=== PATIENT | male | born 1970 | race African-American/Black ===

== ENCOUNTER 2016-12-09 09:44 | Day surgery (SDC) | payer BC ==
[~2016-12-09] VITALS: Ht 182.9 cm; Wt 123.4 kg
[2016-12-09] MEDS ORDERED: LISINOPRIL (11:01)
[2016-12-09] MEDS ORDERED: ATENOLOL (11:01)
[2016-12-09] MEDS ORDERED: PROPOFOL 80 ML ONE (11:31)
--- NOTE | 2016-12-09 12:10 | OPPN ---
Date/Time of Note Date/Time of Note DATE: 12/09/16 TIME: 12:09 Operative Report Preoperative Diagnosis Abdominal pain Rectal bleeding Postoperative Diagnosis Gastritis Internal hemorrhoids Operation/Procedure Performed Esophagogastroduodenoscopy and biopsy Colonoscopy Surgeon see signature line housekeeping assistant None Anesthesia: MAC Estimated blood loss: none Transfusion Required none Specimen Gastric mucosal biopsy Grafts/Implants none Complications none JUS JEREZ MD Dec 09, 2016 12:10
[2016-12-09 12:45] VITALS: BP 142/78; RESP 14
--- NOTE | 2016-12-09 13:37 | GILP ---
DATE OF PROCEDURE: 12/09/2016 PROCEDURES PERFORMED: 1. Esophagogastroduodenoscopy and biopsy. 2. Colonoscopy. SURGEON: Karishma Montemayor MD PREOPERATIVE DIAGNOSES: 1. Abdominal pain. 2. Rectal bleeding. POSTOPERATIVE DIAGNOSES: 1. Gastritis. 2. Gastric mucosal biopsies were taken for Helicobacter pylori test. 3. Colonoscopy all the way to the cecum. 4. Internal hemorrhoids. INDICATIONS FOR PROCEDURE: Mr. Víctor Edward is a 46-year-old male patient who had upper abdominal pain not responding to therapy. He also had rectal bleeding. The procedures and possible complications were well explained to the patient. He understood and consented to the procedure. DESCRIPTION OF PROCEDURE: Under the influence of anesthesia, the gastroscope was carefully introduced into the esophagus. Under direct vision, it was advanced to the stomach, into the pylorus, into the duodenal bulb, and descending duodenum. FINDINGS: Esophagus, mucosa was normal. Stomach, the patient had gastritis with erosions. Gastric mucosal biopsies were taken for Helicobacter pylori test. Duodenum was normal. DESCRIPTION OF PROCEDURE: The colonoscope was carefully introduced in the rectum and under direct vision, it was advanced all the way to the cecum. FINDINGS: The patient had internal hemorrhoids. No colitis or neoplasm was identified. He tolerated the procedures very well. There was no complication from the procedures. At the end of procedures, he was awake with stable vital signs. He was discharged home in care of his family. IMPRESSION: Please see postoperative diagnoses. PLAN: 1. Nexium 24 hours p.o. q.a.m. 2. Anusol HC 2.5 percent cream at bedtime. 3. Next screening colonoscopy in 10 years. Dictated By: MD LISA Hartman/[email or web address] /Document#: [id number]
== END 2016-12-09 17:29 | disposition home or self-care (01) ==
LOC: GIL 09:44
PROVIDERS: ATTEND Internal Medicine Gastroenterology
DX: K29.70 Gastritis, unspecified, without bleeding (principal); K64.8 Other hemorrhoids; K62.5 Hemorrhage of anus and rectum; I10 Essential (primary) hypertension; E66.9 Obesity, unspecified; Z68.36 Body mass index [BMI] 36.0-36.9, adult
CPT/HCPCS: 43239; 45378; 87081; Z7610

== ENCOUNTER 2017-06-20 12:06 | Day surgery (SDC) | END 2017-06-20 17:58 | disposition home or self-care (01) ==

== ENCOUNTER 2017-09-09 19:15 | Emergency (ER) | END 2017-09-09 21:01 | disposition home or self-care (01) ==

== ENCOUNTER 2017-09-16 22:36 | Emergency (ER) | END 2017-09-17 00:25 | disposition home or self-care (01) ==